=== PATIENT | male | born 1955 | race Caucasian/White ===

== ENCOUNTER 2017-09-27 16:07 | Inpatient (IN) | payer OTHER ==
[~2017-09-27] VITALS: Ht 175.3 cm; Wt 85.5 kg
[~2017-09-27 16:07] MED LIST: ASPIRIN325 MG PO; COREG 3.1253.125 MG PO; GLIMEPIRIDE2 MG PO; GLIMEPIRIDE4 MG PO; GLUCOPHAGE1000 MG PO; GLUCOPHAGE500 MG PO; LIPITOR10 MG PO; LOPRESSOR25 MG PO; NORVASC10 MG PO; PLAVIX75 MG PO; PRINIVIL20 MG PO
[2017-09-27 16:51] LABS: BASOPHILS 0.3 % (0-2); EOSINOPHILS 0.1 % (0-7); HEMATOCRIT 43.1 % (42.0-54.0); HEMOGLOBIN 14.8 g/dL (13.5-17.5); IMMATURE GRANULOCYTES 0.8 % (0-5); LYMPHOCYTES 9.7 % (15-50); MCH 32.2 pg (26.0-34.0); MCHC 34.3 g/dL (31.0-37.0); MCV 93.7 fL (80.0-100.0); MEAN PLATELET VOLUME 11.1 fL (7.4-10.4); MONOCYTES 9.5 % (2-11); NEUTROPHILS 79.6 % (40-80); PLATELET COUNT 209 10x3/uL (130-400); RDW 12.1 % (11.5-14.5); WBC 10.7 10x3/uL (4.8-10.8)
[2017-09-27 17:15] LABS: ALBUMIN 3.2 g/dL (3.4-5.0); ALKALINE PHOSPHATASE 85 U/L (46-116); ALT (SGPT) 59 U/L (10-68); BILIRUBIN - TOTAL 0.78 mg/dL (0.2-1.3); CALC OSMOLALITY 268 mosm/kg (275-300); CALCIUM 9.4 mg/dL (8.5-10.1); CARBON DIOXIDE 25.7 mmol/L (21.0-32.0); CHLORIDE - SERUM 94 mmol/L (98-107); GLUCOSE 232 mg/dL (74-106); PROTEIN - SERUM 8.5 g/dL (6.4-8.2); SODIUM 131 mmol/L (136-145); UREA NITROGEN 11 mg/dL (7-18); eGFR NON AFRICAN AMERICAN 80 mL/min (90-120)
[2017-09-27 19:15] VITALS: BP 150/81
[2017-09-27 20:00] VITALS: BP 161/81
[2017-09-27 20:03] LABS: CKMB 0.7 U/L (0.0-3.6); CREATINE KINASE 50 UL (21-232); PRO BNP 428 pg/mL (0-125); TROPONIN-I 0.025 ng/mL (0.000-0.060)
[2017-09-27 21:00] VITALS: BP 153/81
[2017-09-27 21:46] LABS: CKMB 0.4 U/L (0.0-3.6); CREATINE KINASE 41 UL (21-232); TROPONIN-I 0.023 ng/mL (0.000-0.060)
[2017-09-27 22:00] VITALS: BP 145/76
[2017-09-28] VITALS: BP 157/73
[2017-09-28 00:49] LABS: APPEARANCE CLEAR (CLEAR); BILIRUBIN NEGATIVE (NEGATIVE); COLOR DK YELLOW (YELLOW); GLUCOSE 250 mg/dL (NEGATIVE); KETONE SMALL mg/dL (NEGATIVE); NITRITE NEGATIVE (NEGATIVE); PROTEIN NEGATIVE (NEGATIVE)
[2017-09-28 00:50] LABS: BACTERIA NONE SEEN /hpf (NONE SEEN); EPITHELIAL CELLS 0-5 /hpf (0-5); RED CELLS - URINE NONE SEEN /hpf (0-5); WHITE CELLS - URINE 0-5 /hpf (0-5)
[2017-09-28 02:00] VITALS: BP 137/68
[2017-09-28 04:32] LABS: BASOPHILS 0.5 % (0-2); EOSINOPHILS 0.2 % (0-7); HEMATOCRIT 36.9 % (42.0-54.0); HEMOGLOBIN 12.6 g/dL (13.5-17.5); IMMATURE GRANULOCYTES 0.6 % (0-5); LYMPHOCYTES 16.8 % (15-50); MCH 31.9 pg (26.0-34.0); MCHC 34.1 g/dL (31.0-37.0); MCV 93.4 fL (80.0-100.0); MEAN PLATELET VOLUME 11.7 fL (7.4-10.4); MONOCYTES 11.5 % (2-11); NEUTROPHILS 70.4 % (40-80); PLATELET COUNT 204 10x3/uL (130-400); RBC 3.95 10x6/uL (4.20-6.10); WBC 9.4 10x3/uL (4.8-10.8)
[2017-09-28 05:03] LABS: CALC OSMOLALITY 269 mosm/kg (275-300); CALCIUM 8.5 mg/dL (8.5-10.1); CHLORIDE - SERUM 97 mmol/L (98-107); CKMB 0.2 U/L (0.0-3.6); CREATINE KINASE 42 UL (21-232); CREATININE - SERUM 0.9 mg/dL (0.6-1.3); POTASSIUM - SERUM 3.5 mmol/L (3.5-5.1); SODIUM 134 mmol/L (136-145); TROPONIN-I 0.032 ng/mL (0.000-0.060); UREA NITROGEN 9 mg/dL (7-18); eGFR NON AFRICAN AMERICAN > 90 mL/min (90-120)
[2017-09-28 05:08] LABS: GLUCOSE 145 mg/dL (74-106)
[2017-09-28 06:00] VITALS: BP 152/77
[2017-09-28 08:06] VITALS: BP 129/66
[2017-09-28 11:04] LABS: CKMB 0.4 U/L (0.0-3.6); CREATINE KINASE 48 UL (21-232); TROPONIN-I < 0.017 ng/mL (0.000-0.060)
[2017-09-28 13:19] VITALS: BMI 27.7
[2017-09-28 19:51] VITALS: BP 151/76
[2017-09-28 23:54] VITALS: BP 151/76; Ht 175.3 cm; Wt 85.5 kg
[2017-09-29 00:10] VITALS: BP 149/76
[2017-09-29 04:41] LABS: BASOPHILS 0.5 % (0-2); EOSINOPHILS 1.6 % (0-7); HEMATOCRIT 36.3 % (42.0-54.0); HEMOGLOBIN 12.2 g/dL (13.5-17.5); LYMPHOCYTES 26.6 % (15-50); MCH 31.2 pg (26.0-34.0); MCHC 33.6 g/dL (31.0-37.0); MCV 92.8 fL (80.0-100.0); MONOCYTES 11.1 % (2-11); NEUTROPHILS 58.2 % (40-80); PLATELET COUNT 205 10x3/uL (130-400); RBC 3.91 10x6/uL (4.20-6.10); WBC 5.6 10x3/uL (4.8-10.8)
[2017-09-29 04:45] VITALS: BP 142/75
[2017-09-29 05:00] LABS: CALC OSMOLALITY 277 mosm/kg (275-300); CALCIUM 8.5 mg/dL (8.5-10.1); CARBON DIOXIDE 27.6 mmol/L (21.0-32.0); CHLORIDE - SERUM 102 mmol/L (98-107); CREATININE - SERUM 0.9 mg/dL (0.6-1.3); GLUCOSE 158 mg/dL (74-106); POTASSIUM - SERUM 3.7 mmol/L (3.5-5.1); SODIUM 138 mmol/L (136-145); UREA NITROGEN 9 mg/dL (7-18); eGFR NON AFRICAN AMERICAN > 90 mL/min (90-120)
[2017-09-29 08:17] VITALS: BP 138/72
[2017-09-29 11:47] VITALS: BP 132/68
[2017-09-29] MEDS ORDERED: ZITHROMAX500 MG PO (12:24)
[2017-09-29 15:41] VITALS: BP 113/68
[2017-09-29 21:44] VITALS: BP 151/73
[2017-09-30 00:07] VITALS: BP 154/75
[2017-09-30 05:26] VITALS: BP 146/76
[2017-09-30 05:47] LABS: BASOPHILS 0.5 % (0-2); EOSINOPHILS 2.4 % (0-7); HEMATOCRIT 36.9 % (42.0-54.0); HEMOGLOBIN 12.6 g/dL (13.5-17.5); IMMATURE GRANULOCYTES 2.3 % (0-5); LYMPHOCYTES 30.9 % (15-50); MCH 31.7 pg (26.0-34.0); MCHC 34.1 g/dL (31.0-37.0); MCV 92.9 fL (80.0-100.0); MEAN PLATELET VOLUME 11.2 fL (7.4-10.4); MONOCYTES 7.6 % (2-11); NEUTROPHILS 56.3 % (40-80); RBC 3.97 10x6/uL (4.20-6.10); RDW 11.9 % (11.5-14.5); WBC 6.2 10x3/uL (4.8-10.8)
[2017-09-30 05:50] LABS: PLATELET COUNT 255 10x3/uL (130-400)
[2017-09-30 06:16] LABS: CALC OSMOLALITY 276 mosm/kg (275-300); CALCIUM 8.7 mg/dL (8.5-10.1); CARBON DIOXIDE 24.9 mmol/L (21.0-32.0); CHLORIDE - SERUM 103 mmol/L (98-107); CREATININE - SERUM 0.9 mg/dL (0.6-1.3); GLUCOSE 154 mg/dL (74-106); POTASSIUM - SERUM 3.9 mmol/L (3.5-5.1); SODIUM 137 mmol/L (136-145); eGFR NON AFRICAN AMERICAN > 90 mL/min (90-120)
[2017-09-30 06:18] LABS: UREA NITROGEN 12 mg/dL (7-18)
[2017-09-30 09:15] VITALS: BP 143/76
[2017-09-30 11:47] VITALS: BP 145/70
[2017-09-30] MEDS ORDERED: LANTUS INSULIN10 ML SC (12:59)
[2017-09-30] MEDS ORDERED: ZITHROMAX500 MG PO (13:00)
[2017-09-30] MEDS ORDERED: HUMALOG 30100 UNITS/ SC (13:00)
== END 2017-09-30 14:25 | disposition home or self-care (01) | DRG 195 ==
LOC: D.ER 16:07 → D.MS 20:48 → D.EDHOLD 20:48 → D.MS 09-28 14:32
PROVIDERS: Family Medicine; Internal Medicine Nephrology
DX: J18.9 Pneumonia, unspecified organism (principal); R53.1 Weakness; R55 Syncope and collapse; I10 Essential (primary) hypertension; I25.10 Atherosclerotic heart disease of native coronary artery without angina pectoris; D64.9 Anemia, unspecified; E11.65 Type 2 diabetes mellitus with hyperglycemia; Z79.84 Long term (current) use of oral hypoglycemic drugs

== ENCOUNTER 2018-02-10 07:24 | Outpatient (CLI) | payer OTHER ==
[~2018-02-10] VITALS: Ht 175.3 cm; Wt 70.0 kg
--- NOTE | ~2018-02-10 | HEMODYNAMI ---
PATIENT:SHERRIE CAREY MEDICAL RECORD: [id number] : 53 LOCATION:[facility] ADMISSION DATE: 02/10/18 Generatedon:02/10/201811:35 Patient name: SHERRIE CAREY Patient #: [id number] SSN: : 1955 Date of study: 02/10/2018 Page: Of Hemodynamic Procedure Report Patient Data Patient Demographics Procedure consent was obtained First Name: SHERRIE Gender: Male Last Name: AURELIO : 1955 Patient #: [id number] Age: 62 year(s) Race: Additional ID: [id number] Contact details Address: [address] [place] [address] State: [place] City: [facility] Zip code: [address] Past Medical History History of disease Date Diagnosis Comments CHF Allergies Allergen Reaction Date Comments Reported Other allergy 08/30/2014 AGITATION Morphine 08/30/2014 Other allergy 02/10/2018 morphine Admission Admission Data Admission Date: 02/10/2018 Admission Time: 7:24 Admit Source: Other Lab Results Lab Result Date: 02/10/2018 Lab Result Time: 8:15 Biochemistry Name Units Result Min Max BUN mg/dl 16 --(---*)-- 7 18 Creatinine mg/dl 1 --(--*-)-- 0.6 1.3 CBC Name Units Result Min Max Hematocrit % 41.6 -*(----)-- 42 54 Hemoglobin g/dl 14.7 --(-*--)-- 13.5 17.5 Procedure Procedure Types Cath Procedure Diagnostic Procedure LHC LHC w/Coronaries Procedure Description Procedure Date Procedure Date: 02/10/2018 Procedure Start Time: 11:19 Procedure End Time: 11:33 Procedure Staff Name Function Alonzo Gil MD Performing Physician Andrea Santiago RT Monitor Rosalia Jon RT Scrub Maria D Yao RN Nurse Procedure Data Cath Procedure Fluoroscopy Diagnostic fluoroscopy Total fluoroscopy Time: 3.1 time: 3.1 min min Diagnostic fluoroscopy Total fluoroscopy dose: 3.1 dose: 3.1 mGy mGy Contrast Material Contrast Material Type Amount (ml) Isovue 300 43 Entry Location Entry Primary Successful Side Size Upsize Upsize Entry Closure Mckay ccessful Closure Location (Fr) 1 (Fr) 2 (Fr) Remarks Device Remarks Radial Right 6 Fr Mechanical artery Short Compression Estimated blood loss: 5 ml Diagnostic catheters Device Type Used For End Catheter Placement DIAGNOSTIC Rusty 110cm Procedure 5Fr catheter ([id number]) DIAGNOSTIC [place] 110cm 5 Procedure Fr catheter ([id number]) Procedure Complications No complications Procedure Medications Medication Administration Route Dosage 0.9% NaCl I.V. 100 ml/hr Oxygen etCO2 Nasal cannula 2 l/min Lidocaine 2% added to field 20 Heparin Flush Bag added to field 2 bags (1000units/500ml NS) Radial Cocktail added to field 1 syringe (Verapomil 2mg/Nitro 400mcg/Heparin 1500units) Versed I.V. 2 mg Fentanyl I.V. 50 mcg Versed I.V. 1 mg Fentanyl I.V. 25 mcg Hemodynamics Rest Heart Rate: 76 (bpm) Pressure Samples Time Site Value (mmHg) Purpose Heart Use Rate(bpm) 11:22 LV 104/0,9 Snapshot 81 11:22 AO 86/49(63) Pullback 79 11:22 LV 93/-5,4 Pullback 79 Gradients Valve Time Site 1 Site 2 Mean SEP/DFP Peak To Heart Use (mmHg) (sec/min) Peak Rate (mmHg) (bpm) Aortic 11:22 LV AO 7 19 7 79 93/-5,4 86/49(63) Calculations Valve P-P Mean Valve Index Valve Source Name Gradient Area Flow (cm2) Aortic 7 7 7 7 Snapshots Pre Cath Intra NCS Post Cath Vital Signs Time Heart Resp SPO2 etCO2 NIBP (mmHg) Rhythm Pain Sedation Rate (ipm) (%) (mmHg) Status Level (bpm) 11:08:20 76 19 96 26 135/81(104) NSR 0 (11) 10(A) , No pain 11:12:34 75 12 97 25.6 117/78(98) NSR 0 (11) 10(A) , No pain 11:16:48 75 10 96 27.8 118/78(99) NSR 0 (11) 10(A) , No pain 11:21:00 78 11 96 18 114/77(90) NSR 0 (11) 10(A) , No pain 11:25:16 79 14 97 25.6 111/70(91) NSR 0 (11) 10(A) , No pain 11:29:28 77 15 98 35 115/75(96) NSR 0 (11) 10(A) , No pain 11:33:40 76 12 98 29.7 113/72(89) NSR 0 (11) 10(A) , No pain Medications Time Medication Route Dose Verified Delivered Reason Notes E ffectiveness by by 11:11:08 0.9% NaCl I.V. 100 Alonzo Maria D used for ml/hr Jeffery Yao mattress specialist 11:11:15 Oxygen etCO2 2 l/min Alonzo Maria D used for Nasal Jeffery Yao procedure cannula RN 11:11:20 Lidocaine 2% added 20ml Alonzo Alonzo for local to vial Jeffery Gil MD anesthetic field 11:11:42 Heparin Flush added 2 bags Alonzo Alonzo used for Bag to Jeffery Gil MD procedure (1000units/500ml field NS) 11:11:48 Radial Cocktail added 1 Alonzo Alonzo used for (Verapomil to syringe Jeffery Gil MD procedure 2mg/Nitro field 400mcg/Heparin 1500units) 11:19:15 Versed I.V. 2 mg Alonzo Maria D for Jeffery Yao sedation RN 11:19:25 Fentanyl I.V. 50 mcg Alonzo Maria D for Jeffery Yao sedation RN 11:26:24 Versed I.V. 1 mg Alonzo Maria D for Jeffery Yao sedation RN 11:26:28 Fentanyl I.V. 25 mcg Alonzo Maria D for Jeffery Yao sedation director Log Time Note 10:55:28 Informed consent obtained and on chart 10:55:30 Admit Source: Other 10:55:45 Diagnostic Cath status Elective 10:55:47 Rosalia Jon RT(R) sent for patient. Start room use. 10:55:48 Time tracking: Regular hours (M-F 7:00 - 5:00) 10:55:59 Plan of Care:Hemodynamics will remain stable., Cardiac rhythm will remain stable., Comfort level will be maintained., Respiratory function will remain adequate., Patient/ family verbilizes understanding of procedure., Procedure tolerated without complication., Recovers from procedure without complications.. 10:56:07 H&P Date Dictated: 02/07/2018 Within 30 days and on chart., H&P Addendum completed by physician on day of procedure. (MUST COMPLETE FOR ALL OUTPATIENTS). 10:57:40 Lab Result : BUN 16 mg/dl 10:57:40 Lab Result : Hemoglobin 14.7 g/dl 10:57:40 Lab Result : Creatinine 1 mg/dl :57:40 Lab Result : Hematocrit 41.6 % 10:57:42 Lab results completed and on chart. 11:00:16 Patient received from Pre/Post Procedure Room to CCL 1 Alert and oriented. Tansferred to table in Supine position. 11:00:17 Warm blankets applied, and alma hugger turned on for patient comfort. 11:00:17 Correct patient and procedure confirmed by team. 11:00:18 ECG and BP/O2 sat monitors applied to patient. 11:00:19 Pre-procedure instructions explained to patient. 11:00:19 Pre-op teaching completed and patient verbalized understanding. 11:00:21 Family in waiting room. 11:00:22 Patient NPO since Midnight. 11:07:11 Vital chart was started 11:11:08 0.9% NaCl 100 ml/hr I.V. was administered by Maria D Yao RN; used for procedure; 11:11:15 Oxygen 2 l/min etCO2 Nasal cannula was administered by Maria D Yao RN; used for procedure; 11:11:20 Lidocaine 2% 20ml vial added to field was administered by Alonzo Gil MD; for local anesthetic; 11:11:42 Heparin Flush Bag (1000units/500ml NS) 2 bags added to field was administered by Alonzo Gil MD; used for procedure; 11:11:48 Radial Cocktail (Verapomil 2mg/Nitro 400mcg/Heparin 1500units) 1 syringe added to field was administered by Alonzo Gil MD; used for procedure; 11:16:32 Baseline sample Acquired. 11:16:35 Rhythm: sinus rhythm 11:16:37 Full Disclosure recording started 11:16:48 Patient allergic to Other allergymorphine 11:16:50 Is the patient allergic to Iodine/contrast media? No. 11:16:52 Is patient on blood thinner?Yes 11:16:54 ACC The patient was administered the following blood thiners within the last 24 hours: ACCPlavix 11:17:57 Patient diabetic? Yes. 11:17:58 If diabetic: On Metformin? Yes 11:18:02 If on Metformin: Last Dose? 02/08/2018 11:18:06 Previous problem with sedation/anesthesia? No ? 11:18:07 Snore? No 11:18:08 Sleep apnea? No 11:18:09 Deviated septum? No 11:18:09 Opens mouth fully? Yes 11:18:10 Sticks out tongue? Yes 11:18:11 Airway obstruction? No ? 11:18:16 Dentures? Yes partial in tight 11:18:19 Pre procedure: right dorsailis pedis pulse 1+ Palpable, but thready & weak; easily obliterated 11:18:21 Modified Shai's test Ulnar < 7 seconds 11:18:22 Patient pain scale 0/10 ?. 11:18:26 IV patent on arrival in left forearm with 0.9% NaCl at [facility]. 11:18:31 Right Radial & Right Groin area was prepped with chlora-prep and draped in sterile fashion 11:18:32 Alarms reviewed by R. N. 11:18:32 Sharps counted by scrub and verified by R.N. 11:18:34 Use device set Radial Dx or PCI 11:18:35 ACIST Syringe (76427) opened to sterile field. 11:18:36 Medline Cath Pack ([id number]) opened to sterile field. 11:18:36 Bag Decanter (2002) opened to sterile field. 11:18:37 ACIST Hand Control (24666) opened to sterile field. 11:18:37 ACIST Manifold (13224) opened to sterile field. 11:18:37 Tegaderm 4 x 4 (1626W) opened to sterile field. 11:18:38 MBrace Wrist Support ([id number]) opened to sterile field. 11:18:40 DIAGNOSTIC WIRE .035 260cm J wire (333739) opened to sterile field. 11:18:42 NEEDLE Cook 21G 4cm Radial (R12408) opened to sterile field. 11:18:48 SHEATH 6FR Slender ([id number]) opened to sterile field. 11:18:54 Physician arrived 11::55 --------ALL STOP TIME OUT------ 11::55 Final Timeout: patient, procedure, and site verified with staff and physician. All members of the team are in agreement. 11:18:56 Right Radial & Right Groin site verified by team. 11:18:59 Physical assessment completed. ASA score P 2 - A patient with mild systemic disease as per Alonzo Gil MD. 11::01 Sedation plan: IV Moderate Sedation Medication:Versed, Fentanyl 11::13 Procedure started. 11::15 Versed 2 mg I.V. was administered by Maria D Yao RN; for sedation; : Local anesthetic to right radial artery with Lidocaine 2% by Alonzo Gil MD.INITIAL ACCESS ONLY 11:19:25 Fentanyl 50 mcg I.V. was administered by Maria D Yao RN; for sedation; 11::51 Zero performed for pressure channel P1 11::55 Zero performed for pressure channel P1 11::57 Zero performed for pressure channel P1 11:20:39 A 6 Fr Short sheath was inserted into the Right Radial artery 11:21:32 A DIAGNOSTIC Rusty 110cm 5Fr catheter (476066) was advanced over the wire and used for Procedure. 11:22:10 LV gram done using FRAIRE 11::13 Injector settings: Ml/sec: 7, Volume: 15, 11:22:14 LV hemodynamics recorded. 11:22:24 EF : 50 % 11:23:14 RCA angiography performed. 11:25:00 Catheter exchanged over wire. 11:25:07 A DIAGNOSTIC [place] 110cm 5 Fr catheter (556522) was advanced over the wire and used for Procedure. 11:26:24 Versed 1 mg I.V. was administered by Maria D Yao RN; for sedation; 11::28 Fentanyl 25 mcg I.V. was administered by Maria D Yao RN; for sedation; 11::39 LCA angiography performed. 11:29:36 Catheter removed. 11:29:39 TR BAND Standard ([id number]) opened to sterile field. 11::58 Sheath removed intact; hemostasis achieved with Mechanical Compression to the Right Radial artery. 11:29:59 Procedure ended.(Physican Out) 11:30:46 Fluoroscopy time 03.10 minutes. 11:31:34 Flurop Dose total: 3.1 11:31:34 Fluoroscopy dose: 3.1 mGy 11:31:42 Contrast amount:Isovue 300 43ml. 11:31:43 Sharps counted by scrub and verified by R.N. 11:32:18 TR band inflated with 10cc of air. 11:32:20 Insertion/operative site no bleeding no hematoma. 11:32:34 Post right radial artery:stable, soft, clean and dry 11:32:47 Post Procedure Pulses reassessed and unchanged 11:32:49 Post-procedure physical assessment completed. ASA score P 2 - A patient with mild systemic disease as per Alonzo Gil MD. 11:32:51 Post procedure rhythm: unchanged. 11:32:53 Estimated blood loss: 5 ml 11:32:55 Post procedure instruction explained to patient.Patient verbalizes understanding. 11:32:55 Patient needs reinforcement of post procedure teaching. 11:33:17 Procedure and supply charges have been captured, reviewed, submitted and are correct. 11:33:19 Procedure Complication : No complications 11:33:21 Vital chart was stopped 11:33:21 See physician's report for complete and final results. 11:33:22 Report given to Pre/Post Procedure Room. 11:33:25 Patient transfered to Pre/Post Procedure Room with Stretcher. 11:33:26 Procedure ended. 11:33:26 Full Disclosure recording stopped 11:33:30 End room use (Document Last) Device Usage Item Name Manufacture Quantity Catalog Hospital Part Current Minima l Lot# / Number Charge Number Stock Stock Serial# Code ACIST Acist 1 41711 456035 701616 905030 20 Syringe Medical (34898) Systems Inc Medline Cath Medline 1 [id number] 675601 77621 903243 5 Pack ([id number]) Bag Decanter Microtek 1 2001S 953672 88441 872099 5 () Medical Inc. ACIST Hand Acist 1 94230 188045 040370 308750 5 Control Medical (44837) Systems Inc ACIST Acist 1 33486 387849 564655 558156 5 Manifold Medical (49089) Systems Inc Tegaderm 4 x 3M 1 1626W 616776 797055 351818 5 4 (1626W) MBrace Wrist Advanced 1 140-0250-00 142606 67800 302843 5 Support Vascular ([id number]) Dynamics DIAGNOSTIC St Igor 1 428966 782402 704870 952863 30 WIRE .035 260cm J wire (546317) NEEDLE CounterTack [facility] 1 B19297 817222 430700 512920 5 21G 4cm Radial (L35906) SHEATH 6FR Terumo 1 [id number] 150152 556545 845385 40 Slender ([id number]) DIAGNOSTIC Terumo 1 40-5023 211557 569680 797470 5 Rusty 110cm 5Fr catheter (830084) DIAGNOSTIC Terumo 1 40-5013 397069 146593 892463 5 Macks Inn 110cm 5 Fr catheter (442904) TR BAND Terumo 1 [id number] 412983 728612 056550 40 Standard ([id number]) Signature Audit [place] Stage Time Signature Unsigned Intra-Procedure 02/10/2018 Andrea Santiago 11:35:40 AM RT(R) Signatures Monitor : Andrea Santiago RT Signature : Date : Time : [place] [id number] [place] [address]
[~2018-02-10 07:24] MED LIST changes: +HUMALOG 30100 UNITS/ SC; +LANTUS INSULIN10 ML SC; +ZITHROMAX500 MG PO
[2018-02-10] MEDS ORDERED: JANUVIA100 MG PO (08:06)
[2018-02-10] MEDS ORDERED: METOPROLOL TART50 MG PO (08:06)
[2018-02-10] MEDS ORDERED: VICTOZA0.6 MG/0.1 SQ (08:07)
[2018-02-10] MEDS ORDERED: BASAGLAR K100 UNIT/1 SC (08:08)
[2018-02-10 08:15] VITALS: BP 172/91; Ht 175.3 cm; Wt 70.0 kg
[2018-02-10 08:31] LABS: BASOPHILS 0.3 % (0-2); EOSINOPHILS 1.9 % (0-7); HEMATOCRIT 41.6 % (42.0-54.0); HEMOGLOBIN 14.7 g/dL (13.5-17.5); IMMATURE GRANULOCYTES 0.9 % (0-5); LYMPHOCYTES 24.5 % (15-50); MCHC 35.3 g/dL (31.0-37.0); MCV 90.6 fL (80.0-100.0); MEAN PLATELET VOLUME 11.7 fL (7.4-10.4); MONOCYTES 7.4 % (2-11); PLATELET COUNT 218 10x3/uL (130-400); RBC 4.59 10x6/uL (4.20-6.10); RDW 12.4 % (11.5-14.5); WBC 8.9 10x3/uL (4.8-10.8)
[2018-02-10 08:44] LABS: CALC OSMOLALITY 281 mosm/kg (275-300); CALCIUM 8.9 mg/dL (8.5-10.1); CARBON DIOXIDE 22.8 mmol/L (21.0-32.0); CHLORIDE - SERUM 101 mmol/L (98-107); POTASSIUM - SERUM 4.1 mmol/L (3.5-5.1); SODIUM 137 mmol/L (136-145); UREA NITROGEN 16 mg/dL (7-18); eGFR NON AFRICAN AMERICAN 80 mL/min (90-120)
[2018-02-10 08:47] LABS: GLUCOSE 224 mg/dL (74-106)
== END 2018-02-10 13:55 ==
LOC: D.CATH 07:24
PROVIDERS: Internal Medicine Cardiovascular Disease
DX: I25.119 Atherosclerotic heart disease of native coronary artery with unspecified angina pectoris (principal); T82.855A Stenosis of coronary artery stent, initial encounter; Z01.812 Encounter for preprocedural laboratory examination

== ENCOUNTER → 2018-02-24 09:23 | Outpatient (CLI) | payer OTHER ==
[2018-02-10 08:15] VITALS: BMI 22.8
[~2018-02-24 09:23] MED LIST changes: +BASAGLAR K100 UNIT/1 SC; +JANUVIA100 MG PO; +METOPROLOL TART50 MG PO; +VICTOZA0.6 MG/0.1 SQ
[2018-02-24 10:26] LABS: PLT FUNCT.(P2Y12) PLAVIX 221 PRU (194-418)
== END | disposition home or self-care (01) ==
LOC: D.US 09:23
PROVIDERS: Internal Medicine Cardiovascular Disease
DX: I25.10 Atherosclerotic heart disease of native coronary artery without angina pectoris (principal); I25.110 Atherosclerotic heart disease of native coronary artery with unstable angina pectoris

== ENCOUNTER 2018-03-11 08:00 | Inpatient (IN) | payer OTHER ==
[~2018-03-11] VITALS: Ht 175.3 cm; Wt 87.4 kg
--- NOTE | ~2018-03-11 | MORECARE ---
CASE MANAGEMENT DISCHARGE SUMMARY PATIENT: SHERRIE CAREY UNIT: [id number] ADM DATE: 03/15/18 AGE: 62 : 53 SEX: M ROOM/BED: [facility] AUTHOR: PATI,DOC PHYSICIAN: REFERRING PHYSICIAN: TIERRA MAYEN MD DATE OF SERVICE: 03/21/18 Discharge Plan Patient Name: SHERRIE CAREY Facility: [facility]:[place] : 1955 Planned Disposition: Home or Self Care Anticipated Discharge Date: Discharge Date: 03/20/2018 Expected LOS: Initial Reviewer: [email or web address] Initial Review Date: 03/17/2018 Generated: 03/21/18 9:56 am Comments DCP- Discharge Planning Updated by [email or web address]: Yuki Hector on 03/17/18 11:[address] Patient Name: SHERRIE CAREY Admission Status: Elective Accout number: [id number] Admission Date: 03-15-2018 : 1955 Admission Diagnosis: Attending: TIERRA MAYEN Current LOS: 2 Anticipated DC Date: Planned Disposition: Home or Self Care Primary Insurance: [employer] INS EXCHANGE Discharge Planning Comments: CM met with patient and spouse at bedside after obtaining verbal consent. Patient states he plans on returning home after discharge with his . Patient states he will have family transport him home via private vehicle. Patient denies any discharge needs at this time. Patient is requesting that all his medical records from this visit be sent to Dr. Rajat Singleton. CM will obtain medical records release form to be filled out. CM will continue to follow and assist as needed for discharge planning / needs. Director Talent Acquisition: Yuki Hector DCPIA - Discharge Planning Initial Assessment Updated by [id number]: Yuki Hector on 03/17/18 12:09 pm * Is the patient Alert and Oriented? Yes * How many steps to enter\exit or inside your home? * PCP Rajat Singleton * Pharmacy [facility] * Preadmission Environment Home with Family * ADLs Independent * Equipment None * List name and contact numbers for known caregivers / representatives who currently or will assist patient after discharge: Maggie aCrey spouse [phone] * Verbal permission to speak to the caregivers and representatives has been obtained from the patient. N/A * Community resources currently utilized None * Additional services required to return to the preadmission environment? No * Can the patient safely return to the preadmission environment? Yes * Has this patient been hospitalized within the prior 30 days at any hospital? No Last DP export: 03/17/18 11:26 Patient Name: SHERRIE CAREY Page 51325 at 0856 All edits/amendments must be made on the electronic document DICTATION DATE: 03/21/18854 PROJECT FINANCE ANALYST: DM 03/21/18854 RPT#: [id number] DC DATE:03/20/18 STATUS: DIS IN [facility] [address] [place] [address] END OF REPORT
--- NOTE | ~2018-03-11 | HP ---
PATIENT: SHERRIE CAREY MEDICAL RECORD: [id number] ACCOUNT: [id number] LOCATION:[facility].CV05 : 53 ADMISSION DATE: 03/15/18 PCP: SHARON MARTEL MD HISTORY AND PHYSICAL EXAMINATION SHERRIE Steven (62yo, M) ID# [id number]. Date/Time02/21/2018 11:11JILXB15/16/195Service Dept.NPP_[facility] ClinicProviderEDANNA MAYEN MDInsuranceMed Primary: [facility] ([facility]) Insurance # : [id number] Policy/Group # : [id number] Referring Provider Name : SHARON MARTEL Employer Name : SELF EMPLOYED Prescription: CMX - Member is eligible. Chief Complaint Coronary artery disease Patient's Care Team Referring Provider (): SHARON MARTEL: [address] [place] [address], , Sales And Leasing Consultant: MIKAELA BLAKE: [address] [place] [phone], , Patient's Pharmacies [facility] [address] (ERX): [address] [address], , Vitals BP:162/90 sitting R arm 02/21/2018 11:48 am 170/90 sitting L arm 02/21/2018 11:49 amBP Cuff Size:adult 02/21/2018 11:48 am adult 02/21/2018 11:49 amHR:88/reg 02/21/2018 11:49 amHt:5 ft 9 in 02/21/2018 11:45 amWt:194 lbs 02/21/2018 11:45 amBMI:28.6 02/21/2018 11:45 amAllergies Reviewed Allergies MORPHINEMedications Reviewed Medications amLODIPine 10 mg tablet TK 1 T PO QD01/18/18 filledsurescriptsatorvastatin 10 mg gfnyyl60/11/18 filledCaremarkatorvastatin 20 mg idkkzh75/15/18 filledCaremarkazithromycin 500 mg lophmj54/08/18 filledCaremarkBasaglar KwikPen U-100 Insulin 100 unit/mL (3 mL) jvizdhromeje02/29/18 filledCaremarkBD Ultra-Fine Short Pen Needle 31 gauge x 5/16"02/04/18 filledCaremarkclopidogrel 75 mg tablet TK 1 T PO QD01/23/18 filledCaremarkglimepiride 4 mg tablet TK 2 TS PO IN THE TNDQAEQ05/09/18 filledCaremarkHumaLOG KwikPen (U-100) Insulin 100 unit/mL vrkarkuiljdo67/05/18 filledCaremarkJanuvia 100 mg qotdez10/09/18 filledCaremarklisinopril 10 mg tablet TK 1 T PO QD01/13/18 filledCaremarkmetFORMIN 1,000 mg tablet TK 1 T PO BID WC01/23/18 filledsurescriptsmetoprolol tartrate 25 mg omhraf79/21/18 filledCaremarkmetoprolol tartrate 50 mg kzxtgu96/18/18 filledCaremarkOneTouch Delica Lancets 30 gauge TEST TID UTD103/31/17 filledCaremarkOneTouch Ultra Blue Test Strip TEST TID10/01/17 filledsurescriptsOneTouch Ultra2 kit TEST ONCE A DAY FASTING IN THE AM10/01/17 filledsurescriptsVictoza 2-Duane 0.6 mg/0.1 mL (18 mg/3 mL) subcutaneous pen ulageqne91/09/18 filledCaremarkProblems Reviewed Problems Diabetes mellitus Hyperlipidemia Hypertensive disorder Myocardial infarction HISTORY AND PHYSICAL [id number] SHERRIE CAREY Coronary arteriosclerosis Congestive heart failure Family History Reviewed Family History Mother- Heart diseaseMaternal Uncle- Heart diseaseMaternal Grandfather- Heart diseaseSocial History Reviewed Social History Cardiology and General Family history of heart disease?: Y Smoking Status: Former smoker (Notes: QUIT 06/11/13) High Cholesterol: Y High blood pressure: Y Diabetes: Y Surgical History Reviewed Surgical History PTCA 2014 [facility] 01/2018 Past Medical History Reviewed Past Medical History Angina: Y Angioplasty (balloon): Y Arm Pain: Y Chest Pain: Y Coronary Artery Disease: Y Diabetes: Y Heart Disease: Y High Blood Pressure: Y Hyperlipidemia: Y Hypertension: Y Notes: HISTORY OF OR Documents for Discussion N/A Screening None recorded. HPI Fatigue Reported by patient. Severity: normal sleep patterns; same Duration: intermittent; symptoms lasting over 2 weeks Timing: gradual Modifying Factors: no new stressors in life Associated Symptoms: no drug/alcohol withdrawal; no depression; no anxiety; no sleep disturbances; no snoring; periods of not breathing (apnea) have not been observed; no recent change in weight Coronary artery disease ROS Patient reports no fever, no night sweats, no significant weight gain, no significant weight loss, and no exercise intolerance. He reports no dry eyes, no irritation, and no vision change. He reports no difficulty hearing and no ear p ain. He reports no frequent nosebleeds and no nose/sinus problems. He reports no sore throat, no bleeding gums, no snoring, no dry mouth, no mouth ulcers, no oral abnormalities, and no teeth problems. He reports no jugular vein distension and no swollen g l ands. He reports no chest pain, no arm pain on exertion, no shortness of breath when walking, no shortness of breath when lying down, no palpitations, and no HISTORY AND PHYSICAL [id number] SHERRIE CAREY known heart murmur. He reports no cough, no wheezing, no shortness of breath, and no coughing up b lood. He reports no abdominal pain, no vomiting, normal appetite, no diarrhea, not vomiting blood, no nausea, and no constipation. He reports no incontinence, no difficulty urinating, no hematuria, and no increased frequency. He reports no muscle aches, n o muscle weakness, no arthralgias/joint pain, no back pain, and no swelling in the extremities. He reports no abnormal mole, no jaundice, and no rashes. He reports no loss of consciousness, no weakness, no numbness, no seizures, no dizziness, and no headac h es. He reports no depression, no sleep disturbances, feeling safe in relationship, and no alcohol abuse. He reports no fatigue. He reports no swollen glands and no bruising. He reports no runny nose, no sinus pressure, no itching, no hives, and no frequen t sneezing. ROS as noted in the HPI Physical Exam Patient is a 62-year-old male. Constitutional: General Appearance well nourished and developed and healthy-appearing. Level of Distress NAD. Ambulation ambulating normally. Cardiovascular: Apical Impulse not displaced or no thrill. Heart Auscultation normal s1 and s2; no murmurs, rubs, or gallops; and RRR. Arterial Pulses no abdominal aorta bruits, femoral bruits, or popliteal bruits and 2+ bilateral, carotid 2+ bilateral, femoral 2+ bilate ral, popliteal 2+ bilateral, and dorsalis pedis 2+ bilateral. Edema no edema or varicosities. Lungs: Repiratory Effort no dyspnea. Percussion no hyperresonance or dullness or flatness. Auscultation no wheezing, rhonchi, or rales / crackles and breathing sounds normal, good air movement, and CTA except as noted. Abdomen: Bowl Sounds normal. Inspection and Palpation no tenderness, guarding, masses, or rebound tenderness and soft and non-distended. Liver non-tender and no hepatomegaly. Spleen non-tender and no splenomegaly. Hernia none palpable. Musculoskeletal System: Gait And Stance normal gait and stance. Digits and Nails normal nails and no cyanosis. Neurologic: Cranial Nerves grossly intact. Reflexes DTRs 2+ bilaterally throughout. Sensation grossly intact. Lymph Nodes: Lymph Nodes no cervical LAD, supraclavicular LAD, axillary LAD, or inguinal LAD. Eyes: Lids and Conjunctivae no discharge or pallor and non-injected. Pupils PERRLA. Cornea grossly intact. EOM EOMI. Lens clear. Sclerae non-icteric. Neck: Neck no masses, enlarged lymph nodes, or carotid bruits and supple and trachea midline. Thyroid no enlargement or nodules and non-tender. Skin: Inspection and Palpation no rash, lesions, ulcers, jaundice, or abnormal nevi. Assessment / Plan Occlusive coronary artery disease compelling anatomy 1. Coronary arteriosclerosis I25.10: Atherosclerotic heart disease of [place] coronary artery without angina pectoris HISTORY AND PHYSICAL [id number] SHERRIE CAREY Discussion Notes I think that the patient would benefit from aortocoronary artery by pass. I have discussed his disease process with him and his in detail as well as the alternative methods of treatment. We also discussed the expected benefits and risks which include bleeding, infection, stroke, , and the imponderables. They all understand all of the above and he is contemplating his options and timing. He would like to wait until after [place] however he does not need to do any strenuous activity and continue his Plavix until he is ready for surgery. Return to Office None recorded. TIERRA MAYEN MD at 1313 CC: [id number] DICTATION DATE: 02/21/18 1130 MENAGERIE SUPERINTENDENT: JEREMIAH 03/10/18 1309 ADM IN [place] [id number] [place] [address]
--- NOTE | ~2018-03-11 | EC ---
PATIENT:SHERRIE CAREY DATE OF SERVICE: 03/15/18 SEX: M MEDICAL RECORD: [id number] DATE OF : 53 LOCATION:[place] [address] AGE OF PATIENT: 62 ADMISSION DATE: 03/15/18 REFERRING PHYSICIAN: INTERPRETING PHYSICIAN: TABITHA AGUILAR MD ECHOCARDIOGRAM REPORT ECHO CHARGES 4 ECHO COMPLETE Date: 03/11/18 CLINICAL DIAGNOSIS: PRE-CABG ASSESSMENT/CAD ECHOCARDIOGRAPHIC MEASUREMENTS (adult normal given) AC root (d.<3.7cm) 3.3 cm LV Septum d (<1.2 cm> 1.3 cm Valve Excursion 1.4 cm LV Septum (systole) 1.4 cm Left Atria (s.<4.0cm> 3.7 cm LVPW d(<1.2cm) 1.5 cm RV (d.<2.3cm) 3.6 cm LVPW (sytole) 1.8 cm LV diastole(<5.6CM) 6.1 cm MV E-F(>70mm/sec) cm LV systole 4.6 cm LVOT Diameter 1.9 cm MV exc.(>10mm) 2.0 cm Est.ejection fraction (50-75%) % DOPPLER: LVIT cm/sec A 85.0 cm/sec E 60.0 cm/sec LA cm/sec RVSP 27 mmHg LVOT 108 cm/sec AOP1/2T m/s Asc. Ao 129 cm/sec RVOT cm/sec RA cm/sec PA 78 cm/sec AV Gradient Peak 6.68 mmHg AV Mean 3.49 mmHg AV Area 2.6 cm MV Gradient Peak 4.52 mmHg MV Mean 1.35 mmHg MV Area cm COMMENTS: Commercial Loan Coordinator: Leena HAMMER Dedicated Intermodal Truck Driver: 2 Dr. Gil TAPE# PACS Pericardial Effusion N DATE OF SERVICE: 03/15/2018 PROCEDURE: Transesophageal echo evaluation of valvular structures during bypass surgery. FINDINGS: 1. Left ventricular chamber size is within normal limits. Left ventricular systolic function is normal. Overall ejection fraction estimated 50% to 55%. 2. Left atrium, right atrium, and right ventricular chamber sizes are within normal limits. ECHOCARDIOGRAM REPORT [id number] SHERRIE CAREY 3. Valvular structures have normal structure and motion. 4. Doppler interrogation reveals only mild mitral regurgitation. No other valvular insufficiency or stenosis. 5. No evidence of pericardial effusion or left ventricular thrombus. TRANSINT:[id number] Voice Confirmation ID: [id number] DOCUMENT ID: [id number] TABITHA AGUILAR MD at 1324 CC: [id number] DICTATION DATE: 03/15/18 1111 DONOR RELATIONS OFFICER: 03/15/18 1228 ADM IN [facility] [address] [place] [id number]
--- NOTE | ~2018-03-11 | OP ---
PATIENT NAME: SHERRIE CAREY MEDICAL RECORD: [id number] :53 LOCATION:D.CVI D.CV05 ADMISSION DATE:03/15/18 SURGEON: RILEY MCCLELLAND MD DATE OF OPERATION: 03/15/2018 SURGEON: Riley Mcclelland MD ASSISTANTS: DEO Khan MD, and Ralph Servin. OPERATION PERFORMED: 1. Coronary artery bypass graft times 4 (left internal mammary artery to LAD, reverse saphenous vein graft from aorta to second diagonal, aorta to ramus intermedius, aorta to posterolateral branch of right coronary artery). 2. Endoscopic saphenous vein harvest, open harvest. PREOPERATIVE DIAGNOSES: Coronary artery disease with multivessel coronary artery stenosis. POSTOPERATIVE DIAGNOSES: Coronary artery disease with multivessel coronary artery stenosis. ANESTHESIA: General endotracheal anesthesia. ESTIMATED BLOOD LOSS: Total cardiopulmonary bypass with Cell Saver retransfusion. COMPLICATIONS: None. SPECIMENS: None. CONDITION: Stable. DISPOSITION: CV ICU. OPERATIVE FINDINGS: 1. Transesophageal echocardiography confirmed, good contractility approximately 50% with no significant valvular incompetence or stenosis. 2. Endoscopic harvest of the vein from the right thigh; however, a dual system from about the knee to mid thigh required open harvest incisions in the upper thigh as well as down the right lower leg to obtain adequate saphenous vein. The best portion which was from the lower leg and stepped down slightly in caliber was used for the important posterior lateral graft. A smaller segment was used for the diagonal graft and the piece from the thigh was used for the ramus intermedius graft. 3. Good quality left internal mammary artery. The LAD as was seen on the arteriogram had a stent in place and has severe disease at the origin of the second diagonal that unfortunately extended another centimeter and a half distally so the distal LAD anastomosis was performed near the apex. There was good Doppler flow after anastomosis and after reversal of heparin. 4. The second diagonal came off at a right angle to the LAD and extended over near the apex was a 1.25 mm vessel with some moderate proximal plaque. 5. The ramus intermedius was a 1.5 mm vessel. 6. Obtuse marginal seen on the angiogram was very small, where it was available outside the AV groove, dissection was made to look for an intramyocardial vessel, but unsuccessful finding an adequate circumflex target, it was not OPERATIVE REPORT [id number] SHERRIE CAREY bypassed. 7. The large acute marginal came across the inferior wall of the right ventricle to only supply the distal septum and the largest vessel in the inferior wall, the posterolateral branch of the right coronary artery was bypassed, it was a 2 mm vessel with severe disease. 8. Separation from cardiopulmonary bypass without vasopressors. 9. A large and rather fatty heart. INDICATION: Coronary artery disease with history of stents. DESCRIPTION OF PROCEDURE: The patient was brought to the operating suite. General anesthesia was obtained. The patient was prepped and draped. The greater saphenous vein was harvested endoscopically from the right thigh. Side branches divided with electrocautery. The vessel was divided proximally. It was a dual system at the knee. Therefore, additional incisions were made including down the lower leg. Side branches divided with clips. Vessel ligated proximally and distally and removed. Side branches were clipped and oversewn and the graft was made ready for anastomosis. The leg was later irrigated. A drain was placed. The wound was closed in subcutaneous and skin clips and wrapped with an elastic wrap. Median sternotomy incision was made. Subcutaneous tissues divided by electrocautery. The sternum was divided with a saw. The left hemisternum was elevated. The left pleural cavity was entered. Left internal mammary was taken down as a pedicle graft. Sternal retractor was placed. Pericardium was opened. Heparin was given. Air was cannulated. Dual stage venous cannula was inserted. The internal mammary was clipped distally and made ready for anastomosis. The patient was placed on cardiopulmonary bypass. Sites for distal anastomosis were selected. Distal anastomoses were performed in standard technique and proximal anastomoses with single cross-clamp technique. Aortic root de-aired. Proximal anastomoses tied down. Then, vein grafts de-aired and flow restored. Proximal and distal anastomotic sites inspected for bleeding. The patient was in a spontaneous rhythm. The patient was fully rewarmed with cardiopulmonary bypass and was stable. The patient was decannulated. Aortic cannulation site was oversewn with a nonpledgeted Prolene suture. Thorough irrigation was undertaken and hemostasis was assured. Protamine was given. A drain was placed in the mediastinum and left pleural cavity. Ventricular pacing wires were placed. Pericardial fat was loosely reapproximated. Left chest evacuated, irrigated. The internal mammary harvest site was made hemostatic. Sternum was closed with wires. Fascia was closed. Subcutaneous tissue was closed. Skin was closed. Dermabond was placed. The needle and sponge counts were reported correct and the patient was taken to the ICU in stable condition. TRANSINT:[id number] Voice Confirmation ID: [id number] DOCUMENT ID: [id number] OPERATIVE REPORT [id number] SHERRIE CAREY, RILEY Bazzi MD at 0926 CC: HAI BLAKE M.D. and SHARON MARTEL V [id number] DICTATION DATE: 03/15/181716 COMMERCIAL COLLECTIONS DRIVER: 03/15/182014 ADM IN [facility] [address] [place] [address]
--- NOTE | ~2018-03-11 | MORECARE ---
CASE MANAGEMENT DISCHARGE SUMMARY PATIENT: SHERRIE CAREY UNIT: [id number] ADM DATE: 03/15/18 AGE: 62 : 53 SEX: M ROOM/BED: [facility] [place] AUTHOR: KATY KRUEGER PHYSICIAN: REFERRING PHYSICIAN: TIERRA MAYEN MD DATE OF SERVICE: 03/17/18 Discharge Plan Patient Name: SHERRIE CAREY [facility] [facility] 1955 Planned Disposition: Home or Self Care Anticipated Discharge Date: Discharge Date: Expected LOS: Initial Reviewer: [email or web address] Initial Review Date: 03/17/2018 Generated: 03/17/18 1:17 pm DCPIA - Discharge Planning Initial Assessment Updated by [email or web address]: Yuki Hector on 03/17/18 12:09 pm * Is the patient Alert and Oriented? Yes * How many steps to enter\exit or inside your home? * PCP Rajat Singleton * Pharmacy [facility] * Preadmission Environment Home with Family * ADLs Independent * Equipment None * List name and contact numbers for known caregivers / representatives who currently or will assist patient after discharge: Maggie Carey spouse [phone] * Verbal permission to speak to the caregivers and representatives has been obtained from the patient. N/A * Community resources currently utilized None * Additional services required to return to the preadmission environment? No * Can the patient safely return to the preadmission environment? Yes * Has this patient been hospitalized within the prior 30 days at any hospital? No Last DP export: 03/17/18 11:09 Patient Name: SHERRIE CAREY Page [id number] at 1217 All edits/amendments must be made on the electronic document DICTATION DATE: 03/17/186 INTEGRATION ANALYST: JEREMIAH 03/17/186 RPT#: [id number] DC DATE: STATUS: ADM IN [facility] [address] [place] [address] END OF REPORT
--- NOTE | ~2018-03-11 | MORECARE ---
CASE MANAGEMENT DISCHARGE SUMMARY PATIENT: SHERRIE CAREY UNIT: [id number] ADM DATE: 03/15/18 AGE: 62 : 53 SEX: M [facility]ED: [facility] AUTHOR: PATI,DOC PHYSICIAN: REFERRING PHYSICIAN: TIERRA MAYEN MD DATE OF SERVICE: 03/17/18 Discharge Plan Patient Name: SHERRIE CAREY Facility: [facility]:[place] : 1955 Planned Disposition: Home or Self Care Anticipated Discharge Date: Discharge Date: Expected LOS: Initial Reviewer: [email or web address] Initial Review Date: 03/17/2018 Generated: 03/17/18 1:26 pm Comments DCP- Discharge Planning Updated by [email or web address]: Yuki Hector on 03/17/18 11:[address] Patient Name: SHERRIE CAREY Admission Status: Elective Accout number: [id number] Admission Date: 03-15-2018 : 1955 Admission Diagnosis: Attending: TIERRA MAYEN Current LOS: 2 Anticipated DC Date: Planned Disposition: Home or Self Care Primary Insurance: [employer] Discharge Planning Comments: CM met with patient and spouse at bedside after obtaining verbal consent. Patient states he plans on returning home after discharge with his . Patient states he will have family transport him home via private vehicle. Patient denies any discharge needs at this time. Patient is requesting that all his medical records from this visit be sent to Dr. Rajat Singleton. CM will obtain medical records release form to be filled out. CM will continue to follow and assist as needed for discharge planning / needs. Retail Analyst: Yuki Hector DCPIA - Discharge Planning Initial Assessment Updated by [email or web address]: Yuki Hector on 03/17/18 12:09 pm * Is the patient Alert and Oriented? Yes * How many steps to enter\exit or inside your home? * PCP Rajat Singleton * Pharmacy [facility] * Preadmission Environment Home with Family * ADLs Independent * Equipment None * List name and contact numbers for known caregivers / representatives who currently or will assist patient after discharge: Maggie Carey spouse [phone] * Verbal permission to speak to the caregivers and representatives has been obtained from the patient. N/A * Community resources currently utilized None * Additional services required to return to the preadmission environment? No * Can the patient safely return to the preadmission environment? Yes * Has this patient been hospitalized within the prior 30 days at any hospital? No Last DP export: 03/17/18 11:17 Patient Name: SHERRIE CAREY Page [id number] at 1226 All edits/amendments must be made on the electronic document DICTATION DATE: 03/17/18 1225 HOME CARE CONSULTANT: JEREMIAH 03/17/18 1225 RPT#: [id number] DC DATE: STATUS: ADM IN [facility] [address] [place] [address] END OF REPORT
--- NOTE | ~2018-03-11 | MORECARE ---
CASE MANAGEMENT DISCHARGE SUMMARY PATIENT: SHERRIE CAREY UNIT: [id number] ADM DATE: 03/15/18 AGE: 62 : 53 SEX: M ROOM/BED: [facility] AUTHOR: KATY KRUEGER PHYSICIAN: REFERRING PHYSICIAN: TIERRA MAYEN MD DATE OF SERVICE: 03/17/18 Discharge Plan Patient Name: SHERRIE CAREY Facility: [facility]:[place] : 1955 Planned Disposition: Home or Self Care Anticipated Discharge Date: Discharge Date: Expected LOS: Initial Reviewer: [email or web address] Initial Review Date: 03/17/2018 Generated: 03/17/18 1:09 pm Patient Name: SHERRIE CAREY Page [id number] at 1209 All edits/amendments must be made on the electronic document DICTATION DATE: 03/17/181207 RN OR LVN: JEREMIAH 03/17/188 RPT#: [id number] DC DATE: STATUS: ADM IN [facility] [address] [place] [address] END OF REPORT
[2018-03-11 10:30] LABS: BASOPHILS 0.4 % (0-2); EOSINOPHILS 1.1 % (0-7); HEMATOCRIT 42.6 % (42.0-54.0); HEMOGLOBIN 14.7 g/dL (13.5-17.5); IMMATURE GRANULOCYTES 0.3 % (0-5); LYMPHOCYTES 20.4 % (15-50); MCH 32.1 pg (26.0-34.0); MCHC 34.5 g/dL (31.0-37.0); MEAN PLATELET VOLUME 11.8 fL (7.4-10.4); MONOCYTES 7.8 % (2-11); PLATELET COUNT 199 10x3/uL (130-400); RBC 4.58 10x6/uL (4.20-6.10); WBC 11.5 10x3/uL (4.8-10.8)
[2018-03-11 10:34] LABS: APPEARANCE CLEAR (CLEAR); BILIRUBIN NEGATIVE (NEGATIVE); COLOR YELLOW (YELLOW); GLUCOSE 500 mg/dL (NEGATIVE); KETONE MODERATE mg/dL (NEGATIVE); NITRITE NEGATIVE (NEGATIVE); PROTEIN NEGATIVE (NEGATIVE); SPECIFIC GRAVITY 1.015 (1.005-1.020)
[2018-03-11 10:43] LABS: INR 1.03 (0.85-1.17)
[2018-03-11 10:44] LABS: APTT 27.5 SECONDS (22.8-39.4)
[2018-03-11 10:47] LABS: PLT FUNCT.(P2Y12) PLAVIX 235 PRU (194-418)
[2018-03-11 11:11] LABS: ALBUMIN 3.8 g/dL (3.4-5.0); ANION GAP 15.2 mmol/L (8-16); BILIRUBIN - TOTAL 0.51 mg/dL (0.2-1.3); CALCIUM 9.5 mg/dL (8.5-10.1); CARBON DIOXIDE 28.7 mmol/L (21.0-32.0); CREATININE - SERUM 1.1 mg/dL (0.6-1.3); PHOSPHOROUS 4.1 mg/dL (2.5-4.9); POTASSIUM - SERUM 4.9 mmol/L (3.5-5.1); PROTEIN - SERUM 7.5 g/dL (6.4-8.2); T4 THYROXIN - FREE 1.06 ng/dL (0.76-1.46); URIC ACID 7.4 mg/dL (2.6-7.2)
[2018-03-11 11:30] LABS: THYROID STIMULATING HORMONE 0.33 uIU/mL (0.36-3.74)
[2018-03-15] VITALS (33 sets, daily range): BP systolic 100–145; BP diastolic 48–79; BMI 28.2; BMI 28.8
[2018-03-16] VITALS (36 sets, daily range): BP systolic 97–145; BP diastolic 46–84; Ht 175.3 cm; Wt 87.4 kg
[2018-03-16 06:20] LABS: HEMATOCRIT 32.7 % (42.0-54.0); HEMOGLOBIN 10.9 g/dL (13.5-17.5); MCH 31.4 pg (26.0-34.0); MCHC 33.3 g/dL (31.0-37.0); MCV 94.2 fL (80.0-100.0); MEAN PLATELET VOLUME 12.1 fL (7.4-10.4); RBC 3.47 10x6/uL (4.20-6.10); RDW 13.3 % (11.5-14.5)
[2018-03-16 06:49] LABS: ALBUMIN 2.9 g/dL (3.4-5.0); ANION GAP 15.4 mmol/L (8-16); BILIRUBIN - TOTAL 0.43 mg/dL (0.2-1.3); CALCIUM 7.4 mg/dL (8.5-10.1); CARBON DIOXIDE 24.5 mmol/L (21.0-32.0); CREATININE - SERUM 1.2 mg/dL (0.6-1.3); POTASSIUM - SERUM 3.9 mmol/L (3.5-5.1); PROTEIN - SERUM 5.6 g/dL (6.4-8.2)
[2018-03-17] VITALS (27 sets, daily range): BP systolic 108–147; BP diastolic 56–82
[2018-03-17 06:29] LABS: HEMATOCRIT 28.3 % (42.0-54.0); HEMOGLOBIN 9.4 g/dL (13.5-17.5); MCH 31.2 pg (26.0-34.0); MCHC 33.2 g/dL (31.0-37.0); MEAN PLATELET VOLUME 11.4 fL (7.4-10.4); RBC 3.01 10x6/uL (4.20-6.10); RDW 13.4 % (11.5-14.5)
[2018-03-17 06:47] LABS: ALBUMIN 2.6 g/dL (3.4-5.0); ALKALINE PHOSPHATASE 37 U/L (46-116); ALT (SGPT) 21 U/L (10-68); BILIRUBIN - TOTAL 0.72 mg/dL (0.2-1.3); CALC OSMOLALITY 276 mosm/kg (275-300); CALCIUM 7.4 mg/dL (8.5-10.1); CARBON DIOXIDE 25.8 mmol/L (21.0-32.0); CHLORIDE - SERUM 102 mmol/L (98-107); CREATININE - SERUM 0.9 mg/dL (0.6-1.3); GLUCOSE 166 mg/dL (74-106); POTASSIUM - SERUM 3.7 mmol/L (3.5-5.1); PROTEIN - SERUM 5.8 g/dL (6.4-8.2); SODIUM 137 mmol/L (136-145); eGFR NON AFRICAN AMERICAN > 90 mL/min (90-120)
[2018-03-17 06:49] LABS: UREA NITROGEN 10 mg/dL (7-18)
[2018-03-18] VITALS (24 sets, daily range): BP systolic 107–154; BP diastolic 56–73
[2018-03-18 06:20] LABS: HEMATOCRIT 26.5 % (42.0-54.0); HEMOGLOBIN 8.7 g/dL (13.5-17.5); MCH 31.1 pg (26.0-34.0); MCHC 32.8 g/dL (31.0-37.0); MCV 94.6 fL (80.0-100.0); MEAN PLATELET VOLUME 11.6 fL (7.4-10.4); RBC 2.8 10x6/uL (4.20-6.10); RDW 13.3 % (11.5-14.5); WBC 10.7 10x3/uL (4.8-10.8)
[2018-03-18 06:39] LABS: ALBUMIN 2.3 g/dL (3.4-5.0); ALKALINE PHOSPHATASE 36 U/L (46-116); ALT (SGPT) 15 U/L (10-68); CALC OSMOLALITY 281 mosm/kg (275-300); CALCIUM 7.7 mg/dL (8.5-10.1); CHLORIDE - SERUM 106 mmol/L (98-107); GLUCOSE 148 mg/dL (74-106); POTASSIUM - SERUM 4.2 mmol/L (3.5-5.1); PROTEIN - SERUM 5.8 g/dL (6.4-8.2); SODIUM 139 mmol/L (136-145); UREA NITROGEN 14 mg/dL (7-18); eGFR NON AFRICAN AMERICAN 80 mL/min (90-120)
[2018-03-19] VITALS (24 sets, daily range): BP systolic 113–158; BP diastolic 43–89
[2018-03-19 06:10] LABS: HEMATOCRIT 26.3 % (42.0-54.0); HEMOGLOBIN 8.8 g/dL (13.5-17.5); MCH 31.5 pg (26.0-34.0); MCHC 33.5 g/dL (31.0-37.0); MCV 94.3 fL (80.0-100.0); MEAN PLATELET VOLUME 11.5 fL (7.4-10.4); RBC 2.79 10x6/uL (4.20-6.10); RDW 13.2 % (11.5-14.5); WBC 9.9 10x3/uL (4.8-10.8)
[2018-03-19 06:35] LABS: ALBUMIN 2.2 g/dL (3.4-5.0); ALKALINE PHOSPHATASE 38 U/L (46-116); ALT (SGPT) 17 U/L (10-68); BILIRUBIN - TOTAL 0.38 mg/dL (0.2-1.3); CALC OSMOLALITY 278 mosm/kg (275-300); CALCIUM 8.1 mg/dL (8.5-10.1); CHLORIDE - SERUM 103 mmol/L (98-107); GLUCOSE 171 mg/dL (74-106); POTASSIUM - SERUM 4.7 mmol/L (3.5-5.1); SODIUM 137 mmol/L (136-145); UREA NITROGEN 14 mg/dL (7-18); eGFR NON AFRICAN AMERICAN 80 mL/min (90-120)
[2018-03-19] MEDS ORDERED: AMIODARONE HCL200 MG PO (09:53)
[2018-03-19] MEDS ORDERED: HEMOCYTE PLUS C1 CAP PO (09:53)
[2018-03-19] MEDS ORDERED: LOPRESSOR25 MG PO (09:54)
[2018-03-19] MEDS ORDERED: ASPIRIN EC81 M1 PO (09:55)
[2018-03-19] MEDS ORDERED: COLACE100 MG PO (09:56)
[2018-03-19] MEDS ORDERED: PERCOCET 5-3251 TAB PO (09:57)
[2018-03-20] VITALS (13 sets, daily range): BP systolic 125–150; BP diastolic 55–80
[2018-03-20 06:07] LABS: HEMATOCRIT 29.8 % (42.0-54.0); HEMOGLOBIN 9.7 g/dL (13.5-17.5); MCHC 32.6 g/dL (31.0-37.0); MCV 95.2 fL (80.0-100.0); MEAN PLATELET VOLUME 11.6 fL (7.4-10.4); RBC 3.13 10x6/uL (4.20-6.10); RDW 13.4 % (11.5-14.5); WBC 9.6 10x3/uL (4.8-10.8)
[2018-03-20 06:34] LABS: ALBUMIN 2.5 g/dL (3.4-5.0); ALKALINE PHOSPHATASE 49 U/L (46-116); ALT (SGPT) 20 U/L (10-68); BILIRUBIN - TOTAL 0.39 mg/dL (0.2-1.3); CALC OSMOLALITY 274 mosm/kg (275-300); CALCIUM 8.9 mg/dL (8.5-10.1); CARBON DIOXIDE 23.4 mmol/L (21.0-32.0); CHLORIDE - SERUM 100 mmol/L (98-107); GLUCOSE 152 mg/dL (74-106); PROTEIN - SERUM 6.6 g/dL (6.4-8.2); SODIUM 135 mmol/L (136-145); UREA NITROGEN 17 mg/dL (7-18); eGFR NON AFRICAN AMERICAN 80 mL/min (90-120)
== END 2018-03-20 14:45 | disposition home or self-care (01) | DRG 236 ==
LOC: D.SDCHOLD 09:00 → D.CVICU 03-15 05:00 → D.SDCHOLD 03-15 07:30 → D.CVICU 03-15 10:51
PROVIDERS: Internal Medicine Cardiovascular Disease; Thoracic Surgery (Cardiothoracic Vascular Surgery)
PROC: 021209W Bypass Coronary Artery, Three Arteries from Aorta with Autologous Venous Tissue, Open Approach (ICD-10-PCS; 2018-03-15)
PROC: 06BP0ZZ Excision of Right Saphenous Vein, Open Approach (ICD-10-PCS; 2018-03-15)
PROC: 5A1221Z Performance of Cardiac Output, Continuous (ICD-10-PCS; 2018-03-15)
PROC: B24BZZ4 Ultrasonography of Heart with Aorta, Transesophageal (ICD-10-PCS; 2018-03-15)
PROC: 02100Z9 Bypass Coronary Artery, One Artery from Left Internal Mammary, Open Approach (ICD-10-PCS; principal; 2018-03-15 07:30)
DX: I25.119 Atherosclerotic heart disease of native coronary artery with unspecified angina pectoris (principal); E78.5 Hyperlipidemia, unspecified; I10 Essential (primary) hypertension; Z87.891 Personal history of nicotine dependence; E11.65 Type 2 diabetes mellitus with hyperglycemia

== ENCOUNTER → 2018-04-06 08:27 | Outpatient (CLI) | payer OTHER ==
[2018-03-16 10:20] VITALS: BMI 28.8
[~2018-04-06 08:27] MED LIST changes: +AMIODARONE HCL200 MG PO; +ASPIRIN EC81 M1 PO; +COLACE100 MG PO; +HEMOCYTE PLUS C1 CAP PO; +PERCOCET 5-3251 TAB PO
[2018-04-06 09:15] LABS: HEMATOCRIT 37.8 % (42.0-54.0); HEMOGLOBIN 12.1 g/dL (13.5-17.5); MCH 30.4 pg (26.0-34.0); MEAN PLATELET VOLUME 10.6 fL (7.4-10.4); RBC 3.98 10x6/uL (4.20-6.10); RDW 14.2 % (11.5-14.5)
[2018-04-06 09:16] LABS: ALBUMIN 3.4 g/dL (3.4-5.0); ANION GAP 16.3 mmol/L (8-16); BILIRUBIN - TOTAL 0.32 mg/dL (0.2-1.3); CALCIUM 9.6 mg/dL (8.5-10.1); CARBON DIOXIDE 27.6 mmol/L (21.0-32.0); CREATININE - SERUM 1.2 mg/dL (0.6-1.3); POTASSIUM - SERUM 4.9 mmol/L (3.5-5.1); PROTEIN - SERUM 7.7 g/dL (6.4-8.2)
== END | disposition home or self-care (01) ==
LOC: D.RAD 03-30 09:15
PROVIDERS: Thoracic Surgery (Cardiothoracic Vascular Surgery)
DX: J90 Pleural effusion, not elsewhere classified (principal); D64.9 Anemia, unspecified

== ENCOUNTER → 2019-03-07 12:26 | Outpatient (CLI) | payer OTHER ==
[2018-03-16 10:20] VITALS: BMI 28.8
== END | disposition home or self-care (01) ==
LOC: D.HCCECHO 12:26 → D.HCCARDIO 13:00 → D.HCCECHO 13:00
PROVIDERS: ATTEND Internal Medicine Cardiovascular Disease
DX: I34.0 Nonrheumatic mitral (valve) insufficiency (principal)

== ENCOUNTER → 2020-09-10 11:18 | Outpatient (CLI) | payer MEDICARE ==
[2018-03-16 10:20] VITALS: BMI 28.8
== END | disposition home or self-care (01) ==
LOC: D.HCCECHO 11:18
PROVIDERS: ATTEND Internal Medicine Cardiovascular Disease
DX: I10 Essential (primary) hypertension (principal)